=== PATIENT | female | born 1995 | race Caucasian/White ===

== ENCOUNTER 2021-12-17 12:11 | Outpatient (CLI) | payer MEDICAID ==
[2021-12-17] MEDS ORDERED: KETOROLAC 15 MG/ML 1 ML VIAL IVP STA (12:22)
[2021-12-17] MEDS: LACTATED RINGERS 1,000 ML IV ONE ×2 (12:50→13:41)
[2021-12-17 12:59] LABS: Basophils % (A) 0 %; Eosinophils # (A) 0.1 k/uL (0-0.7); Eosinophils % (A) 1 %; HCT 38.4 % (34.0-46.0); Lymphocytes # (A) 1.6 k/uL (1.0-4.8); Lymphocytes % (A) 17 %; MCH 32.4 pg (25.0-35.0); MCHC 33.9 g/dL (31.0-37.0); MCV 95.5 fL (80.0-100.0); Mean Platelet Volume 7.9; Monocytes # (A) 0.4 k/uL (0-1.0); Monocytes % (A) 4 %; Neutrophils # (A) 7.4 k/uL (1.3-7.7); Neutrophils % (A) 77 %; Platelet Count 248 k/uL (150-450); RBC 4.02 m/uL (3.80-5.40); RDW 13.4 % (11.5-15.5); WBC 9.6 k/uL (3.8-10.6)
[2021-12-17 13:14] LABS: ALT 19 U/L (4-34); AST 42 U/L (14-36); African American GFR (CKD) >90 (>60 ml/min/1.73 sqM); Albumin 3.8 g/dL (3.5-5.0); Alkaline Phosphatase 59 U/L (38-126); Anion Gap 7 mmol/L; Blood Urea Nitrogen 8 mg/dL (7-17); Calcium 8.7 mg/dL (8.4-10.2); Carbon Dioxide 17 mmol/L (22-30); Chloride 106 mmol/L (98-107); Glucose 72 mg/dL (74-99); Non-African American GFR(CKD) >90 (>60 ml/min/1.73 sqM); Sodium 130 mmol/L (137-145); Total Bilirubin 1.7 mg/dL (0.2-1.3); Total Protein 7.2 g/dL (6.3-8.2)
[2021-12-17 13:16] LABS: Potassium 4.4 mmol/L (3.5-5.1)
[2021-12-17 13:26] LABS: Appearance,Urine Cloudy (Clear); Bacteria,Urine Few /hpf; Bilirubin,Urine Negative (Negative); Blood,Urine Negative (Negative); Color,Urine Light Yellow; Glucose,Urine (UA) Negative (Negative); Ketones,Urine 1+ (Negative); Leukocyte Esterase,Urine Moderate (Negative); Mucus,Urine Rare /hpf; Nitrite,Urine Negative (Negative); PH, Urine 6.5 (5.0-8.0); Protein,Urine Negative (Negative); RBC,Urine 2 /hpf (0-5); Specific Gravity,Urine 1.006 (1.001-1.035); Squamous Epithelial Cell,Urine 7 /hpf (0-4); Urobilinogen,Urine <2.0 mg/dL (<2.0); WBC,Urine 6 /hpf (0-5)
--- NOTE | 2021-12-17 14:59 | US ---
EXAMINATION TYPE: US gallbladder DATE OF EXAM: 12/17/2021 COMPARISON: NONE CLINICAL HISTORY: right side abd/flank pain. Right flank pain EXAM MEASUREMENTS: Liver Length: 16.8 cm Gallbladder Wall: 0.1 cm CBD: 0.4 cm Pancreas: visualized portions wnl, limited by overlying midline bowel gas Liver: wnl Gallbladder: wnl Evidence for sonographic Mckeon's sign: no CBD: wnl Right Kidney: imaged under kidney ultrasound same day IMPRESSION: Negative exam. No gallstones or dilated ducts.
--- NOTE | 2021-12-17 15:03 | US ---
EXAMINATION TYPE: US kidneys/renal and bladder DATE OF EXAM: 12/17/2021 COMPARISON: NONE CLINICAL HISTORY: right side abd/flank pain. Right flank pain EXAM MEASUREMENTS: Right Kidney: 10.9 x 4.5 x 5.9 cm Left Kidney: 11.3 x 5.7 x 4.7 cm Right Kidney: mild hydronephrosis, inferior pole limited by overlying bowel gas Left Kidney: wnl Bladder: wnl Bilateral Jets seen: right jet not seen, left jet seen There is no evidence for hydronephrosis at this point in time. No nephrolithiasis is seen. No luiza s are identified. The urinary bladder is anechoic. Bilateral ureteral jets are seen. IMPRESSION: There is some right-sided hydronephrosis that could relate to renal obstruction. No evidence of a shaneka al mass.
[2021-12-17] MEDS ORDERED: Acetaminophen-Codeine 300-30mg TAB PO STA (15:06)
[2021-12-17 16:35] VITALS: BP 124/68; PULSE 72; RESP 16; TEMP 97.7
--- NOTE | 2021-12-20 09:10 | P.MSEPDOC ---
Presenting Problems - Arrival Data Date of Arrival on Unit: 12/17/21 Time of Arrival on Unit: 12:08 Mode of Transport: Portable - Complaint OB-Reason for Admission/Chief Complaint: Pain Comment: right side abd pain and flank pain, kidney stone? Medical History - Information : 1 Para: 0 Term: 0 : 0 Abortions: Spontaneous or Elective: 0 Number of Living Children: 0 - Gestational Age Gestational Age by NADINE (wks/days): 23 Weeks and 4 Days Review of Systems - Review of Systems Constitutional: No problems Breast: No problems ENT: No problems Cardiovascular: No problems Respiratory: No problems Gastrointestinal: No problems Genitourinary: No problems Musculoskeletal: No problems Neurological: No problems Skin: No problems Vital Signs - Temperature Temperature: 97.7 F Temperature Source: Temporal Artery Scan - Pulse Right Brachial Pulse Rate: 72 Pulse Assessment Method: Automatic Cuff - Respirations Respiratory Rate: 16 Oxygen Delivery Method: Room Air O2 Sat by Pulse Oximetry: 97 - Blood Pressure Right Arm Sitting Blood Pressure: 124/68 Blood Pressure Mean: 86 Blood Pressure Source: Automatic Cuff Medical Screen Scoring - Assessment - Baby A Baseline FHR: 130 Heart Rate - NICHD Category: Category I (Normal) Physician Notification - Physician Notified Physician Notified Date: 12/17/21 Physician Notified Time: 13:18 Physician: Danielle Thompson Order Received: Yes (IV fluids, Pain medication, u/s, dc with script and follow up in office) Maternal Triage Index - Non-Urgent/Priority 4 Non-Urgent Priority 4: Yes Criteria Met for Priority 4: 24 weeks s/s kidney stone Disposition - Disposition OB Disposition: Physician follow up in office, Triage, Discharge to home, Danuta tate follow up instructions reviewed Discharge Date: 12/17/21 Discharge Time: 16:05 I agree with the RN Medical Screening Exam: Yes Case reviewed; plan agreed upon as documented in EMR&OBIX.: Yes Comments: Patient is neither seen nor examined by me Diagnosis: UNSPECIFIED ABDOMINAL PAIN
== END 2021-12-17 16:05 | disposition home or self-care (01) ==
LOC: FBPOP 12:11
PROVIDERS: ATTEND Obstetrics & Gynecology
DX: O26.892 Other specified pregnancy related conditions, second trimester (principal); R10.9 Unspecified abdominal pain; Z3A.23 23 weeks gestation of pregnancy
CPT/HCPCS: 99214; 96361; 96374; 80053; 85025; 81001; 76770; 76705; J1885

== ENCOUNTER 2022-03-30 14:16 | Outpatient (CLI) | payer MEDICAID ==
[2022-03-30 17:29] VITALS: BP 145/87; PULSE 80; RESP 16; TEMP 97.7
--- NOTE | 2022-04-06 07:46 | P.MSEPDOC ---
Presenting Problems - Arrival Data Date of Arrival on Unit: 03/30/22 Time of Arrival on Unit: 14:17 Mode of Transport: Ambulatory - Complaint OB-Reason for Admission/Chief Complaint: Possible Onset of Labor Comment: pt arrived c/o back discomfort that comes and goes and called the office and was told to go to L/D unit to be evaluated. pt denies any leaking of fluid Medical History - Information : 1 Para: 0 Term: 0 : 0 Abortions: Spontaneous or Elective: 0 Number of Living Children: 0 - Gestational Age Gestational Age by NADINE (wks/days): 38 Weeks and 2 Days Review of Systems - Review of Systems Constitutional: No problems Breast: No problems ENT: No problems Cardiovascular: No problems Respiratory: No problems Gastrointestinal: No problems Genitourinary: No problems Musculoskeletal: No problems Neurological: No problems Skin: No problems Vital Signs - Temperature Temperature: 97.7 F Temperature Source: Oral - Pulse Right Brachial Pulse Rate: 80 Pulse Assessment Method: Automatic Cuff - Respirations Respiratory Rate: 16 Oxygen Delivery Method: Room Air O2 Sat by Pulse Oximetry: 98 - Blood Pressure Right Arm Blood Pressure: 145/87 Blood Pressure Mean: 106 Blood Pressure Source: Automatic Cuff Medical Screen Scoring - Cervical Exam Dilation (cm): 1 Effacement (%): 60 Station: 0 Membranes: Intact - Uterine Contractions Frequency From (mins): 4 Frequency To (mins): 5 Duration From (seconds): 35 Intensity: Mild Resting: Soft to palpation - Assessment - Baby A Baseline FHR: 120 Heart Rate - NICHD Category: Category I (Normal) NST: Reactive Physician Notification - Physician Notified Physician Notified Date: 03/30/22 Physician Notified Time: 16:31 Physician: Dr Ríos New Order Received: Yes - Notification Comment Comment: may dicharge to home with instructions Maternal Triage Index - Non-Urgent/Priority 4 Non-Urgent Priority 4: Yes Criteria Met for Priority 4: pt 38 2/7 weeks c/o back discomfort Disposition - Disposition OB Disposition: Physician follow up in office, Discharge to home Discharge Date: 03/30/22 Discharge Time: 17:17 I agree with the RN Medical Screening Exam: Yes Case reviewed; plan agreed upon as documented in EMR&OBIX.: Yes Diagnosis: FALSE LABOR AT OR AFTER 37 COMPLETED WEEKS OF GESTATION
== END 2022-03-30 17:17 | disposition home or self-care (01) ==
LOC: FBPOP 14:16
PROVIDERS: ATTEND Obstetrics & Gynecology
DX: O47.1 False labor at or after 37 completed weeks of gestation (principal); Z3A.38 38 weeks gestation of pregnancy
CPT/HCPCS: 59025; 99213

== ENCOUNTER 2022-04-02 08:39 | Outpatient (CLI) | payer MEDICAID ==
[2022-04-02 11:48] VITALS: BP 129/83; PULSE 88; RESP 16; TEMP 97.9
--- NOTE | 2022-04-06 07:48 | P.MSEPDOC ---
Presenting Problems - Arrival Data Date of Arrival on Unit: 04/02/22 Time of Arrival on Unit: 08:39 Mode of Transport: Ambulatory - Complaint OB-Reason for Admission/Chief Complaint: Rule Out SROM Comment: pt presents to triage with complaints of SROM around 0745. Pt states she had a large gush of clear fluid when she was standing at the refrigerator. Pt denies any odorwith the fluid. Pt wore a pad in but states she is not currently leaking. also states had small leakage around 11pm last night. presents with cody pad in place dry. Medical History - Information : 1 Para: 0 Term: 0 : 0 Abortions: Spontaneous or Elective: 0 Number of Living Children: 0 - Gestational Age Gestational Age by NADINE (wks/days): 38 Weeks and 5 Days Review of Systems - Review of Systems Constitutional: No problems Breast: No problems ENT: No problems Cardiovascular: No problems Respiratory: No problems Gastrointestinal: No problems Genitourinary: No problems Musculoskeletal: No problems Neurological: No problems Skin: No problems Vital Signs - Temperature Temperature: 97.9 F Temperature Source: Tympanic - Pulse Right Pulse Rate: 88 Pulse Assessment Method: Pulse Oximetry - Respirations Respiratory Rate: 16 Oxygen Delivery Method: Room Air O2 Sat by Pulse Oximetry: 98 - Blood Pressure Right Arm Blood Pressure: 129/83 Blood Pressure Mean: 98 Blood Pressure Source: Automatic Cuff Medical Screen Scoring - Cervical Exam Dilation (cm): 1.5 Effacement (%): 60 Membranes: Intact - Uterine Contractions Frequency From (mins): 3 Frequency To (mins): 6 Duration From (seconds): 60 Duration To (seconds): 70 Intensity: Mild Resting: Soft to palpation - Assessment - Baby A Baseline FHR: 145 Heart Rate - NICHD Category: Category I (Normal) NST: Reactive Physician Notification - Physician Notified Physician Notified Date: 04/02/22 Physician Notified Time: 09:50 Physician: Dr Thompson New Order Received: Yes Maternal Triage Index - Maternal Triage Index Presenting for scheduled procedure w/no complaint: No - Stat/Priority 1 Stat Priority 1: No - Urgent/Priority 2 Urgent Priority 2: No - Prompt/Priority 3 Prompt Priority 3: No - Non-Urgent/Priority 4 Non-Urgent Priority 4: Yes Criteria Met for Priority 4: Dr Thompson in department. Saw pt breifly to confirm position vertex with hand held US due to this rn unable to feel presenting part with cervical exam and EFM high on abdomen to monitor FHR vertex position confirmed. Dr states pt to discharge and return if contractions increase in frequency and intensity or if continued signs of leaking fluid. Disposition - Disposition OB Disposition: Physician follow up in office, Discharge to home Discharge Date: 04/02/22 Discharge Time: 10:00 I agree with the RN Medical Screening Exam: Yes Case reviewed; plan agreed upon as documented in EMR&OBIX.: Yes Diagnosis: FALSE LABOR AT OR AFTER 37 COMPLETED WEEKS OF GESTATION
== END 2022-04-02 10:00 | disposition home or self-care (01) ==
LOC: FBPOP 08:39
PROVIDERS: ATTEND Obstetrics & Gynecology
DX: O47.1 False labor at or after 37 completed weeks of gestation (principal); Z3A.38 38 weeks gestation of pregnancy
CPT/HCPCS: 59025; 84112; 99213

== ENCOUNTER 2022-04-03 09:20 | Inpatient (IN) | payer MEDICAID ==
[2022-04-03] MEDS: LACTATED RINGERS 1,000 ML IV SCH ×4 (10:05→17:25)
[2022-04-03] MEDS ORDERED: METHYLERGONOVINE 0.2 MG/ML 1 ML AMP IM PRN (10:06)
[2022-04-03] MEDS ORDERED: CARBOPROST TROMETHAMINE 250 MCG/ML 1 ML AMP IM PRN (10:06)
[2022-04-03] MEDS ORDERED: OXYTOCIN 10 UNIT/ML 1 ML VIAL IM PRN (10:06)
[2022-04-03] MEDS ORDERED: LIDOCAINE 0.5% (PF) 5 MG/ML (50 ML SDV) SQ PRN (10:06)
[2022-04-03] MEDS ORDERED: TERBUTALINE 1 MG/ML VIAL SQ PRN (10:06)
[2022-04-03 10:21] LABS: Basophils # (A) 0.1 k/uL (0-0.2); Basophils % (A) 1 %; Eosinophils # (A) 0.1 k/uL (0-0.7); Eosinophils % (A) 1 %; HGB 11.8 gm/dL (11.4-16.0); Lymphocytes # (A) 1.5 k/uL (1.0-4.8); Lymphocytes % (A) 8 %; MCH 28.1 pg (25.0-35.0); MCHC 32.7 g/dL (31.0-37.0); MCV 85.7 fL (80.0-100.0); Monocytes # (A) 0.9 k/uL (0-1.0); Monocytes % (A) 5 %; Neutrophils # (A) 17.4 k/uL (1.3-7.7); Neutrophils % (A) 86 %; Platelet Count 297 k/uL (150-450); WBC 20.1 k/uL (3.8-10.6)
[2022-04-03] MEDS ORDERED: ROPIVACAINE 100 MG, fentaNYL (PF). 200 MCG in SODIUM CHLORIDE 0.9% 76 ML EPIDURAL ONE (11:15)
--- NOTE | 2022-04-03 11:57 | P.HPOB ---
History of Present Illness H&P Date: 04/03/22 Chief Complaint: My water broke at 9:30 this morning, clear. This is a 26-year-old female 1 para 0 EDC 04/11/2022 at 38-6/7 weeks' gestation who presented with strong regular uterine contractions and spontaneous amniorrhexis at 0930 hours, clear fluid. Fetus is been active throughout. She denies vaginal bleeding. Past medical history is significant for cardiac ablation 2019. Current medications baby aspirin daily, vitamin daily. ALLERGIES none known. Family history significant for skin cancer, hypothyroidism, arthritis. 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 She has never been a smoker, denies alcohol or drug use. history is significant for blood type A+, rubella status immune. Urine culture, group B strep cultures, hepatitis B surface antigen, HIV testing, gonorrhea and chlamydia cultures all negative. One-hour Glucola 136. On exam patient is 5 foot 10 inches, 198 pounds, blood pressure 137/82. Vital signs are stable and she is afebrile. General physical exam is within normal limits. The heart rate is consistent with reactive NST. The cervix is 7- 8 cm dilated, 70% effaced, -2 station, vertex presentation. Impression: 38-6/7 weeks intrauterine , active spontaneous labor. All signs reassuring. Epidural placed and functioning well. Plan: Continue close maternal and surveillance. Anticipate normal spontaneous vaginal delivery. Review of Systems Constitutional: Reports as per HPI Past Medical History Past Medical History: GERD/Reflux, Supraventricular Tachycardia (SVT) History of Any Multi-Drug Resistant Organisms: None Reported Past Surgical History: Cardiac Ablation Past Anesthesia/Blood Transfusion Reactions: No Reported Reaction Smoking Status: Never smoker Past Alcohol Use History: None Reported Past Drug Use History: None Reported - Past Family History Mother Family Medical History: No Reported History Medications and Allergies Home Medications Medication Instructions Recorded Confirmed Type Aspirin 81 mg PO DAILY 03/30/22 04/03/22 History No.77/Iron Asp Gly/FA 1 each PO DAILY 03/30/22 04/03/22 History [Prenate Star Tablet] Allergies Allergy/AdvReac Type Severity Reaction Status Date / Time No Known Allergies Allergy Verified 04/03/22 09:42 Exam Vital Signs Temp Pulse Resp BP Pulse Ox 04/03/22 10:30 98.2 F 105 H 16 137/82 99 04/03/22 09:48 98.2 F 105 H 16 137/82 98 Intake and Output 04/02/22 04/03/22 04/03/22 22:59 06:59 14:59 Other: Weight 89.811 kg See dictation under HPI please Results Result Diagrams: 04/03/22 10:05 Abnormal Lab Results - Last 24 Hours (Table) 04/03/22 Range/Units 10:05 WBC 20.1 H (3.8-10.6) k/uL Neutrophils # 17.4 H (1.3-7.7) k/uL Assessment and Plan Assessment: 38-6/7 weeks intrauterine , active spontaneous labor. All signs reassuring. Plan: Continue close maternal and surveillance. Anticipate normal spontaneous vaginal delivery. Time with Patient: Less than 30
[2022-04-03] MEDS ORDERED: OXYTOCIN 30 UNITS/500 ML NS 30 UNIT in SALINE 1 500ML.BAG IV SCH (13:45)
[2022-04-03] MEDS ORDERED: CITRIC ACID-SODIUM CITRATE 15 ML CUP PO ONE (15:47)
[2022-04-03] MEDS ORDERED: ONDANSETRON 4 MG/2 ML VIAL IVP PRN (16:59)
[2022-04-03] MEDS ORDERED: ZOLPIDEM 5 MG TAB PO PRN (16:59)
[2022-04-03] MEDS ORDERED: NALOXONE 0.4 MG/ML 1 ML VIAL IV PRN (16:59)
[2022-04-03] MEDS ORDERED: diphenhydrAMINE 50 MG CAP PO PRN (16:59)
[2022-04-03] MEDS ORDERED: diphenhydrAMINE 50 MG/ML 1 ML VIAL IVP PRN ×2 (16:59)
[2022-04-03] MEDS ORDERED: SIMETHICONE 80 MG CHEWABLE PO PRN (16:59)
[2022-04-03] MEDS ORDERED: diphenhydrAMINE 25 MG CAP PO PRN (16:59)
[2022-04-03] MEDS ORDERED: METOCLOPRAMIDE 5 MG/ML 2 ML VIAL IVP PRN (16:59)
--- NOTE | 2022-04-03 16:59 | P.OP ---
Date of Procedure: 04/03/22 Preoperative Diagnosis: Nonreassuring heart tones, repetitive late decelerations, arrest of dilatation and descent Postoperative Diagnosis: Left occiput anterior Procedure(s) Performed: Primary low transverse section Anesthesia: epidural Surgeon: Danielle Thompson Category Planner #1: Janelle Garcia Estimated Blood Loss (ml): 700 IV fluids (ml): 1,200 Urine output (ml): 200 Pathology: other (Placenta) Condition: stable Disposition: PACU Operative Findings: Left occiput transverse , 6 lbs. 5 oz., 2870 g, Apgars 9 and 9 at one and 5 minutes Description of Procedure: In the first stage of labor at 8-9 cm dilatation, repetitive deep late decelerations were noted into the 60s. This persisted despite position changes, cessation of oxytocin, oxygen. Decision was made to proceed with primary low transverse section. In addition, no cervical dilatation was noted in 3 and half hours time. Antibiotics were given. Vaginal prep was performed. Fole y catheter set to direct drainage. Patient was brought to the operating room. The abdomen was prepped and draped in usual sterile fashion. Left lateral uterine displacement was performed. The epidural was "topped off" per the anesthesia staff. The analgesia was checked and noted to be adequate. The appropriate timeout is performed to assure proper patient and procedural identification. A low transverse skin incision is made and this carried down through the subcutaneous tissue which is approximate 2 cm in depth. Fascia is isolated, scored, extended bilaterally with curved Amezcua scissors. Peritoneum is next identified and incised, there is no bowel or bladder involvement. The bladder blade was placed over the dome of the bladder and at all times the bladder is Well from the operative field to avoid bladder and/or ureteral injury. A low transverse uterine incision is made in this is extended with blunt dissection. 's head is delivered in the left occiput transverse position. There is no nuchal cord noted. The oropharynx, nasopharynx and external nares were all bulb suctioned on the perineal body. Patient is officially delivered of a liveborn male at 1622 hrs. Umbilical cord is doubly clamped and ligated, he is handed to waiting nurses for evaluation where scores of 9 and 9 at one and 5 minutes respectively are given. The placentas delivered manu ally, it is inspected and noted to be intact with trivascular cord at 1623 hrs. It is sent to pathology for further evaluation. The uterus is then externalized and massaged. It is swept clean with a sterile sponge to avoid any retained products of conception. The uterus is closed in a two-step fashion, first layer running locking, second layer imbricated, both with 0 Vicryl suture. Abdomen is suctioned with suction on guard posterior to the uterus. Uterus is gently placed back into the abdominal cavity. Bilateral gutters are inspected and cleaned. Uterine incision is clean and dry. Bladder is allowed to close by secondary intention. The fascia is closed in a single full-thickness suture of 0 Vicryl with over ligation in the midline. Subcutaneous tissue is irrigated, clean and dry. It is reapproximated with 3-0 Vicryl in a running fashion. 4-0 undyed Mastisol is used for final skin closure in a subcuticular manner. Steri-Strips and Mastisol are applied to the wound. Uterus is massaged. The incision is dressed appropriately. Mead is noted to be draining clear urine, 200 mL total. Estimated blood loss 700 mL's. Fluid replacement 1200 mL in the operating room. Patient is brought back to the recovery room in very good condition with stable vital signs including blood pressure 105/35, pulse 91, 98% O2 saturation, respirations 14. She is requesting circumcision for her son.
[2022-04-03] MEDS: ACETAMINOPHEN TAB 500 MG TAB PO SCH (20:05)
[2022-04-03] MEDS: SENNOSIDES-DOCUSATE SODIUM 1 EACH TAB PO SCH (20:06)
[2022-04-03] MEDS: IBUPROFEN 600 MG TAB PO SCH (23:52)
[2022-04-04] MEDS: LACTATED RINGERS 1,000 ML IV SCH ×2 (01:32→10:31)
[2022-04-04] MEDS: ACETAMINOPHEN TAB 500 MG TAB PO SCH ×3 (05:26→19:45)
[2022-04-04] MEDS: IBUPROFEN 600 MG TAB PO SCH ×2 (07:41→18:16)
[2022-04-04] MEDS: SENNOSIDES-DOCUSATE SODIUM 1 EACH TAB PO SCH ×2 (07:41→19:45)
[2022-04-04 07:42] LABS: Basophils % (A) 0 %; Eosinophils % (A) 0 %; HCT 28.6 % (34.0-46.0); Hypochromasia Slight; Lymphocytes # (A) 1.2 k/uL (1.0-4.8); Lymphocytes % (A) 9 %; MCH 28.6 pg (25.0-35.0); MCHC 32.5 g/dL (31.0-37.0); MCV 87.7 fL (80.0-100.0); Mean Platelet Volume 8.1; Monocytes # (A) 0.5 k/uL (0-1.0); Monocytes % (A) 4 %; Neutrophils % (A) 86 %; Platelet Count 249 k/uL (150-450); RBC 3.26 m/uL (3.80-5.40); RDW 14.5 % (11.5-15.5); WBC 13.9 k/uL (3.8-10.6)
[2022-04-04 07:49] LABS: HGB 9.3 gm/dL (11.4-16.0)
--- NOTE | 2022-04-04 07:59 | P.PN ---
Progress Note - Text Progress Note Date: 04/04/22 Patient doing well. Ambulating w/o paresthesia or weakness. Pain controlled. Denies headache. Urinary retention s/p straight cath. Epidural site c/d POD #1 s/p c-sec with epidural duramorph - doing well
--- NOTE | 2022-04-04 09:17 | P.PN ---
Subjective Progress Note Date: 04/04/22 Principal diagnosis: Doing well postoperative day #1 Slept well. Positive flatus. Pain well managed. No complaints Objective - Vital Signs Vital signs: Vital Signs Temp 98.2 F 04/04/22 08:00 Pulse 75 04/04/22 08:00 Resp 18 04/04/22 08:00 BP 101/61 04/04/22 08:00 Pulse Ox 97 04/04/22 08:00 FiO2 Intake & Output 04/03/22 04/04/22 04/04/22 18:59 06:59 18:59 Intake Total 1200 Output Total 1700 980 Balance -500 -980 Weight 89.811 kg Intake: IV 1200 Output: Urine 1000 800 Uretheral (Mead) 300 Output, Quantitative 700 180 Blood Loss - Constitutional General appearance: Present: average body habitus, cooperative - EENT Eyes: Present: PERRLA ENT: Present: hearing grossly normal - Respiratory Respiratory: bilateral: CTA - Cardiovascular Rhythm: regular - Gastrointestinal Gastrointestinal Comment(s): Fundus firm, midline, symmetric, 18 week size, nontender. Incision clean and dry, well approximated, Steri-Strips applied. General gastrointestinal: Present: normal bowel sounds - Neurologic Neurologic: Present: CNII-XII intact - Musculoskeletal Musculoskeletal: Present: gait normal, strength equal bilaterally - Psychiatric Psychiatric: Present: A&O x's 3, appropriate affect, intact judgment & insight - Labs CBC & Chem 7: 04/04/22 07:14 Labs: Abnormal Lab Results - Last 24 Hours (Table) 04/03/22 04/04/22 Range/Units 10:05 07:14 WBC 20.1 H 13.9 H (3.8-10.6) k/uL RBC 3.26 L (3.80-5.40) m/uL Hgb 9.3 L D (11.4-16.0) gm/dL Hct 28.6 L (34.0-46.0) % Neutrophils # 17.4 H 12.0 H (1.3-7.7) k/uL Assessment and Plan Assessment: Doing well postoperative day #1 Plan: Advance diet and activity. Ferrous sulfate 325 mg once daily. Continue postoperative care. Likely discharge home tomorrow.
[2022-04-04] MEDS ORDERED: FERROUS SULFATE 325 MG TAB PO SCH (17:30)
[2022-04-05] MEDS: IBUPROFEN 600 MG TAB PO SCH ×2 (00:29→06:45)
[2022-04-05] MEDS: ACETAMINOPHEN TAB 500 MG TAB PO SCH ×2 (02:26→07:37)
[2022-04-05] MEDS: SENNOSIDES-DOCUSATE SODIUM 1 EACH TAB PO SCH (07:36)
--- NOTE | 2022-04-05 07:48 | P.DS ---
Providers Date of admission: 04/03/22 09:45 Expected date of discharge: 04/05/22 Attending physician: Danielle Thompson Primary care physician: Stated None Hospital Course: This is a 26-year-old white female 1 para 0 EDC 04/11/2022 at 38-6/7 weeks' gestation who presented with a history of spontaneous amniorrhexis, clear fluid, group B strep cultures negative, rubella status immune. Please see dictated history and physical for details. Patient progressed through labor and became 8-9 cm dilated, she had arrest of dilation for 3 and half hours as well as deep variable decelerations with late component. For this reason decision was made to proceed with . She underwent a primary low transverse section giving to a liveborn male infant with scores of 9 and 9 at one and 5 minutes respectively. He weighed 2870 g or 6 lbs. 5 oz. Surgery was unremarkable, estimated blood loss 700 mL's. Please see my dictated operative note for details. This when the patient is doing quite well. She is voiding, ambulating, passing flatus without difficulty. Breast-feeding is going well. I have given her prescription for a double electric breast pump per her request. Circumcision has been performed this morning. Patient is judged to be in very good condition for discharge home. I have asked that she continue her vitamin daily and add [id number] iron supplement once daily. No intercourse, tampons or douching. No heavy lifting. Advil, Motrin or Aleve as needed for pain. Incisional care is reviewed. She will call with any fevers shakes or chills, foul smelling or copious lochia, with the passage of large blood clots, with any pain not alleviated by [id number] products, or indeed with any concerns. Assessment: Doing well second postoperative day Patient Condition at Discharge: Good Plan - Discharge Summary Discharge Rx Participant: No New Discharge Prescriptions: No Action Aspirin 81 mg PO DAILY No.77/Iron Asp Gly/FA [Prenate Star Tablet] 1 each PO DAILY Discharge Medication List Aspirin 81 mg PO DAILY 03/30/22 [History] No.77/Iron Asp Gly/FA [Prenate Star Tablet] 1 each PO DAILY 03/30/22 [History] Follow up Appointment(s)/Referral(s): Danielle Thompson MD [STAFF PHYSICIAN] - 2 Weeks Discharge Disposition: HOME SELF-CARE
[2022-04-05 08:27] VITALS: BP 122/80; PULSE 77; RESP 16; TEMP 98.3
--- NOTE | 2022-04-06 07:51 | P.MSEPDOC ---
Presenting Problems - Arrival Data Date of Arrival on Unit: 04/03/22 Time of Arrival on Unit: 09:48 Mode of Transport: Ambulatory - Complaint OB-Reason for Admission/Chief Complaint: Possible Onset of Labor Medical History - Information : 1 Para: 0 Term: 0 : 0 Abortions: Spontaneous or Elective: 0 Number of Living Children: 0 - Gestational Age Gestational Age by NADINE (wks/days): 38 Weeks and 6 Days Review of Systems - Review of Systems Constitutional: No problems Breast: No problems ENT: No problems Cardiovascular: No problems Respiratory: No problems Gastrointestinal: No problems Genitourinary: No problems Musculoskeletal: No problems Neurological: No problems Skin: No problems Vital Signs - Temperature Temperature: 98.3 F Temperature Source: Axillary - Pulse Right Sitting Pulse Rate: 77 Pulse Assessment Method: Auscultation - Respirations Respiratory Rate: 16 Oxygen Delivery Method: Room Air - Blood Pressure Right Arm Blood Pressure: 122/80 Blood Pressure Mean: 94 Blood Pressure Source: Automatic Cuff Medical Screen Scoring - Cervical Exam Dilation (cm): 5 Effacement (%): 90 Membranes: Intact - Uterine Contractions Intensity: Moderate Resting: Soft to palpation - Assessment - Baby A Baseline FHR: 130 Heart Rate - NICHD Category: Category I (Normal) NST: Reactive Physician Notification - Physician Notified Physician Notified Date: 04/03/22 Physician Notified Time: 09:48 Physician: Danielle Thompson Order Received: Yes (admit pt for labor) Maternal Triage Index - Prompt/Priority 3 Prompt Priority 3: Yes Criteria Met for Priority 3: SROM in triage @ 0930, clear fluid, vag exam 5cm/90% Disposition - Disposition OB Disposition: Admit, LDRP Suite Discharge Date: 04/05/22 Discharge Time: 12:20 I agree with the RN Medical Screening Exam: Yes Case reviewed; plan agreed upon as documented in EMR&OBIX.: Yes Diagnosis: LOUSE-BORNE TYPHUS
== END 2022-04-05 12:20 | disposition home or self-care (01) | DRG 788 ==
LOC: FBPOP 09:20 → 4FBP 09:45
PROVIDERS: ADMIT Obstetrics & Gynecology; ATTEND Obstetrics & Gynecology
PROC: 10D00Z1 Extraction of Products of Conception, Low, Open Approach (ICD-10-PCS; principal; 2022-04-03 16:00)
DX: O62.1 Secondary uterine inertia (principal); Z3A.38 38 weeks gestation of pregnancy; Z37.0 Single live birth; O76 Abnormality in fetal heart rate and rhythm complicating labor and delivery; Z79.82 Long term (current) use of aspirin; K21.9 Gastro-esophageal reflux disease without esophagitis; Z86.79 Personal history of other diseases of the circulatory system
CPT/HCPCS: 59025; 85025; 86850; 86900; 86901; 88307; 99213

== ENCOUNTER → 2022-12-15 | Outpatient (CLI) | payer MEDICAID ==
--- NOTE | 2022-12-15 14:37 | MM ---
Reason for Exam: Clinical finding. Baseline mammogram. Patient History: Menarche at age 13. First Full-Term at age 26. Premenopausal. Maternal grandmother had breast cancer at or over age 50. Last menstrual period: 12/05/2022 Prior Study Comparison: Patient's first Mammogram. Tissue Density: The breast tissue is heterogeneously dense. This may lower the sensitivity of mammography. Findings: Analyzed By CAD. No masses seen. No evidence for distortion or suspicious calcifications. Overall Assessment: Incomplete: need additional imaging evaluation, BI-RAD 0 Management: Diagnostic Breast Ultrasound of both breasts. A clinical breast exam by your physician is recommended on an annual basis and results should be correlated with mammographic findings. This exam should not preclude additional follow-up of suspicious palpable abnormalities. Results were given to the patient verbally at the time of exam. Electronically signed and approved by: Prabhu Gar M.D. Radiologis
--- NOTE | 2022-12-15 14:59 | USB ---
Reason for Exam: Clinical finding. Patient History: Menarche at age 13. First Full-Term at age 26. Premenopausal. Maternal grandmother had breast cancer at or over age 50. Technique: Method: Whole Breast Handheld. Findings: The whole breast of both breasts, the axilla of both breasts and the retroareolar of both breasts were scanned. No solid or cystic masses are identified.. Overall Assessment: Negative, BI-RAD 1 Management: Screening Mammogram of both breasts in 1 year. A clinical breast exam by your physician is recommended on an annual basis and results should be correlated with mammographic findings. This exam should not preclude additional follow-up of suspicious palpable abnormalities. Results were given to the patient verbally at the time of exam. Electronically signed and approved by: Prabhu Gar M.D. Radiologis
== END | disposition home or self-care (01) ==
LOC: RADMAMWWP 14:11
PROVIDERS: ATTEND Internal Medicine
DX: R92.2 Inconclusive mammogram (principal); Z80.3 Family history of malignant neoplasm of breast; Q83.9 Congenital malformation of breast, unspecified
CPT/HCPCS: 77062; 77066